=== PATIENT | female | born 1990 | race Caucasian/White ===

== ENCOUNTER 2025-04-06 06:03 | Day surgery (SDC) | payer BC ==
[2025-04-06] VITALS (17 sets, daily range): BP systolic 124–153; BP diastolic 55–84
[~2025-04-06] VITALS: Ht 167.6 cm; Wt 104.6 kg
[~2025-04-06 06:03] MED LIST: IBUP800 PO; MIRENA1 EAC3 VAG; OXAYDO5 M1 PO; OZEMPIC0.25 MG/02 SC; VENL150ER PO; VENL37.5ER PO
[2025-04-06] MEDS ORDERED: Clindamycin 600mg in D5W 50 ML IV SCH (06:25)
--- NOTE | 2025-04-06 06:55 | NUR ---
History, Chart, Medications and Allergies reviewed before start of procedure. Pre-Op teaching done. Pt verbalizes understanding. Patient confirms NPO status and agrees with scheduled surgery. PT REQUESTS TO LEAVE UNDERWEAR ON AT THIS TIME D/T BEING ON MENSTRAL CYCLE. PT STATES SHE WILL REMOVE UNDERWEAR RIGHT BEFORE ROLLING BACK TO OR. TELEPHONE TRIAGE NURSE AWARE.
[2025-04-06] MEDS ORDERED: FentaNYL Citrate 50 MCG/ML 2 ML Injection ONE ×3 (07:18→09:52)
[2025-04-06] MEDS ORDERED: Rocuronium Bromide 10 MG/ML 5ML Injection IV ONE ×2 (07:19→08:03)
[2025-04-06] MEDS ORDERED: Bupivacaine 0.5% W/EPI 1:200000 SDV 30 ML Vial ONE (07:19)
[2025-04-06] MEDS ORDERED: Dexamethasone Sod Phos 10 MG/ML 1ML VIAL ONE (07:50)
[2025-04-06] MEDS ORDERED: Sugammadex Sodium 200 MG/2ML SDV (100 MG/ML) ONE (08:59)
[2025-04-06] MEDS ORDERED: Ondansetron HCl 2 MG / ML 2ML Vial ONE (08:59)
[2025-04-06] MEDS ORDERED: FentaNYL Citrate 50 MCG/ML 2 ML Injection IV PRN (09:45)
[2025-04-06] MEDS ORDERED: Ondansetron HCl 2 MG / ML 2ML Vial IV PRN (09:45)
[2025-04-06] MEDS ORDERED: FLU VACC TS2025-26(6MOS UP)/PF 45 MCG/0.5 ML SYRINGE IM SCH (09:45)
[2025-04-06] MEDS ORDERED: Ketorolac Tromethamine 30mg Vial ONE (09:52)
[2025-04-06 11:12] LABS: BASOPHILS ABSOLUTE AUTO 0.02 K/mm3 (0.00-0.23); BASOPHILS PERCENT AUTO 0 % (0-2); EOSINOPHILS ABSOLUTE AUTO 0.02 K/mm3 (0.00-0.68); EOSINOPHILS PERCENT AUTO 0 % (0-6); Hematocrit 38.4 % (33.0-51.0); Hemoglobin 12.6 g/dL (11.5-16.0); IMMATURE GRAN ABSOLUTE AUTO 0.03 K/mm3 (0.00-0.10); IMMATURE GRAN PERCENT AUTO 0 % (0-1); LYMPHOCYTES ABSOLUTE AUTO 1.26 K/mm3 (0.84-5.20); LYMPHOCYTES PERCENT AUTO 13 % (21-46); MONOCYTES ABSOLUTE AUTO 0.19 K/mm3 (0.16-1.47); MONOCYTES PERCENT AUTO 2 % (4-13); Mean Corpuscular HGB Conc 32.8 g/dL (31.5-36.5); Mean Corpuscular Volume 90 fL (80-100); NEUTROPHILS ABSOLUTE AUTO 7.86 K/mm3 (1.96-9.15); NEUTROPHILS PERCENT AUTO 84 % (41-73); NRBC ABSOLUTE 0.00 K/mm3 (0.00-0.02); NRBC Auto 0.0 /100 WBC (0.0-0.2); Platelet Count 330 K/mm3 (150-400); RDW Coefficient Variation 13.1 % (11.7-14.2); RDW Standard Deviation 43.1 fL (35.1-46.3)
[2025-04-06] MEDS ORDERED: Ketorolac Tromethamine 30mg Vial IV SCH (12:00)
[2025-04-06] MEDS ORDERED: ACET500 PO (14:21)
[2025-04-06] MEDS ORDERED: SIME80CH PO (14:22)
--- NOTE | 2025-04-06 15:21 | NUR ---
SUMMARY PT TO FLOOR @1027. AXO4. VSS. UP TO BATHROOM BUT WAS UNABLE TO VOID, VOIDED CLOSER TO 1200. NO VAGINAL DRAIANAGE THROUGHOUT TIME PRESENT IN ROOM. PAIN CONTROLLED WITH PO MEDS. PT EXPERIENCING SLIGHT CRAMPING - HEATING PAD SUPPLIED. PT TOELRATED FOOD WELL. AMBULATED INDEPENDENTLY. LAP SITES CDI. DR WEST ASSESSED PT - DEEMED OK TO DC. DC INSTRUCTIONS PROVIDED. PT EDUCATED WITH SPOUSE IN ROOM. IV PULLED. PT WHEELED OUT AND DC'D @1500.
== END 2025-04-06 15:08 | disposition home or self-care (01) ==
LOC: ORSCMMR 06:03 → ORD 07:30 → SURS 10:28 → ORSCMMR 15:08
PROVIDERS: Obstetrics & Gynecology
PROC: 0UT9FZZ Resection of Uterus, Via Natural or Artificial Opening With Percutaneous Endoscopic Assistance (ICD-10-PCS; principal; 2025-04-06 07:30)
PROC: 0UT7FZZ Resection of Bilateral Fallopian Tubes, Via Natural or Artificial Opening With Percutaneous Endoscopic Assistance (ICD-10-PCS; principal; 2025-04-06 07:30)
DX: N92.1 Excessive and frequent menstruation with irregular cycle (principal); N72 Inflammatory disease of cervix uteri; N71.1 Chronic inflammatory disease of uterus; N83.8 Other noninflammatory disorders of ovary, fallopian tube and broad ligament; F17.290 Nicotine dependence, other tobacco product, uncomplicated; F41.9 Anxiety disorder, unspecified; F32.A Depression, unspecified; E66.01 Morbid (severe) obesity due to excess calories; Z68.37 Body mass index [BMI] 37.0-37.9, adult; Z79.899 Other long term (current) drug therapy; Z79.85 Long-term (current) use of injectable non-insulin antidiabetic drugs
CPT/HCPCS: 36415; 85025; 86850; 86900; 86901; 88307; A9270; J1100; J1580; J1885; J2405; J2704; J3010; J7120